=== PATIENT | male | born 1970 | race Caucasian/White ===

== ENCOUNTER → 2020-01-03 07:31 | Outpatient (CLI) | payer OTHER, SELFPAY ==
--- NOTE | ~2020-01-03 | MR_ITS ---
EXAMINATION: MR cervical spine wo con DATE: 01/03/2020 08:25 INDICATION: Left arm numbness and weakness. TECHNIQUE: Magnetic resonance imaging (MRI) of the cervical spine was performed without intravenous c ontrast. Sequences included sagittal T2-weighted FSE, sagittal STIR FSE, sagittal T1-weighted FSE, ax ial MERGE, and axial T2-weighted FSE. COMPARISON: None FINDINGS: Bone alignment is normal. Vertebral body heights are normal. There is mildly decreased disc height at C5-C6. The spinal cord signal intensity is normal. The following disc levels are specifica lly discussed: C2-C3: The disc does not extend beyond the endplate margin. There is no uncovertebral joint osteoarth ritis. There is no facet joint osteoarthritis. There is no neural foraminal stenosis. There is no alina tral canal stenosis. C3-C4: The disc does not extend beyond the endplate margin. There is mild left uncovertebral joint os teoarthritis. There is mild bilateral facet joint osteoarthritis. There is no neural foraminal stenos is. There is no central canal stenosis. C4-C5: The disc does not extend beyond the endplate margin. There is no uncovertebral joint osteoarth ritis. There is mild left facet joint osteoarthritis. There is no neural foraminal stenosis. There is no central canal stenosis. C5-C6: The disc is bulging. There is moderate right and severe left uncovertebral joint osteoarthriti s. There is no facet joint osteoarthritis. There is mild right and moderate left neural foraminal helio nosis. There is mild central canal stenosis with ventral indentation of the spinal cord. C6-C7: There is a left central and foraminal zone extrusion. There is mild left uncovertebral joint o steoarthritis. There is no facet joint osteoarthritis. There is moderate left neural foraminal stenos is. There is mild central canal stenosis with ventral indentation of the spinal cord. C7-T1: The disc does not extend beyond the endplate margin. There is no uncovertebral joint osteoarth ritis. There is mild bilateral facet joint osteoarthritis. There is no neural foraminal stenosis. The re is no central canal stenosis. IMPRESSION: 1. Moderate cervical spondylosis. Reviewed, dictated and finalized at location B.
== END ==
PROVIDERS: PCP Family Medicine; Visit Provider Orthopaedic Surgery
DX: M47.22 Other spondylosis with radiculopathy, cervical region (principal); R53.1 Weakness
CPT/HCPCS: 72141

== ENCOUNTER 2020-01-25 06:55 | Outpatient (NON) | payer OTHER, SELFPAY ==
[2020-01-25 17:26] LABS: SARS-CoV-2 RNA PCR Negative
== END 2020-01-25 06:56 ==
PROVIDERS: PCP Family Medicine; Visit Provider Family Medicine
DX: R05 Cough (principal); Z20.828 Contact with and (suspected) exposure to other viral communicable diseases
CPT/HCPCS: 87635; C9803; U0003